=== PATIENT | female | born 1950 | race African-American/Black ===

== ENCOUNTER 2016-07-08 01:24 | Emergency (ER) | payer MEDICAID, MEDICARE, OTHER ==
[~2016-07-08] VITALS: Ht 152.4 cm; Wt 63.5 kg
[~2016-07-08 01:24] MED LIST: ACETAMINOPHEN-1 EAC1 ORAL; AMLODIPINE BESYL5 MG ORAL; CEPHALEXIN500 MG ORAL; FUROSEMIDE40 MG ORAL; KEFLEX500 MG ORAL; LEXAPRO10 MG ORAL; LISINOPRIL5 MG ORAL; PACERONE100 MG ORAL; PROPRANOLOL HCL10 MG ORAL; TACROLIMUS0.5 MG PO; primidone PO
[2016-07-08] MEDS ORDERED: CRESTOR10 M2 ORAL (01:47)
[2016-07-08] MEDS ORDERED: PROPRANOLOL HCL10 MG ORAL (01:47)
[2016-07-08] MEDS ORDERED: CALCITRIOL1 MCG/1 ML IV (01:47)
[2016-07-08] MEDS ORDERED: ESCITALOPRAM OX10 MG ORAL (01:47)
[2016-07-08] MEDS ORDERED: VITAMIN D250000 UNI1 ORAL (01:47)
[2016-07-08] MEDS ORDERED: ALLOPURINOL100 M1 ORAL (01:47)
[2016-07-08] MEDS ORDERED: ROCATROL0.25 MCG GT (01:47)
[2016-07-08] MEDS ORDERED: CHLORTHALIDONE25 MG ORAL (01:47)
[2016-07-08] MEDS ORDERED: TACROLIMUS0.5 GM MC (01:47)
[2016-07-08] MEDS ORDERED: FERROUS SULFAT325 MG ORAL (01:47)
--- NOTE | 2016-07-08 01:51 | Emergency Room Report ---
History of Present Illness General Chief Complaint: Edema Source: Patient Present Illness HPI Is a 66-year-old female with history hypertension and kidney and liver insufficiency. She presents with chief complaint of increasing swelling to the lower extremity the last few days. Initially in the right side. Now that is also with edema. She complaining of lower back pain. Denies dysuria frequency. Denies any chest pain. Does have shortness of breath with exertion. No other complaint. No trauma. No pain. Allergies: Coded Allergies: IODINE (Verified Allergy, Unknown, 10/24/08) Patient History Past Medical History: see triage record, old chart reviewed, HTN Past Surgical History: other Pertinent Family History: none Social History: Denies: smoking Last Menstrual Period: NO MORE PERIOD Now: No : 2 Immunizations: other Reviewed Nursing Documentation: PMH: Agreed, PSxH: Agreed Nursing Documentation-PMH Hx Cardiac Problems: Yes Hx Hypertension: Yes Hx Diabetes: Yes Review of Systems Eye: Denies: blurred vision, eye pain ENT: Denies: ear pain, nose congestion, throat swelling Respiratory: Reports: shortness of breath, Denies: cough Cardiovascular: Denies: chest pain, palpitations Gastrointestinal: Denies: abdominal pain, diarrhea, nausea, vomiting Musculoskeletal: Reports: joint swelling, Denies: back pain, joint pain Skin: Denies: rash Neurological: Denies: headache, numbness Endocrine: Denies: increased thirst, increased urine Hematologic/Lymphatic: Denies: easy bruising All Other Systems: negative except mentioned in HPI Physical Exam Vital Signs Date Time Temp Pulse Resp B/P Pulse Ox O2 Delivery O2 Flow Rate FiO2 07/08/16 01:30 98.2 66 18 142/88 96 Room Air vitals with hypertension Sp02 EP Interpretation: reviewed, normal General Appearance: well appearing, no apparent distress, alert Head: normocephalic, atraumatic Eyes: bilateral eye EOMI, bilateral eye PERRL ENT: hearing grossly normal, normal pharynx Neck: full range of motion, supple, no meningismus Respiratory: chest non-tender, lungs clear, normal breath sounds Cardiovascular #1: regular rate, rhythm, no murmur Gastrointestinal: normal bowel sounds, non tender, no mass, no organomegaly, no bruit, non-distended Musculoskeletal: back normal, gait/station normal, normal range of motion, swelling - Right leg with 2+ pitting edema. Left leg with trace edema Neurologic: alert, oriented x3 Psychiatric: mood/affect normal Skin: warm/dry Medical Decision Making Diagnostic Impression: Primary Impression: Pedal edema Additional Impressions: Chronic kidney disease Qualified Codes: N18.9 - Chronic kidney disease, unspecified Proteinuria ER Course Patient presents with increasing pedal edema. Her Lasix was stopped because of her kidney function was worsening. Her reaction in is elevated since last time she was here. No evidence of CHF in her lungs. Lungs are clear. She does have cardiomegaly. No evidence of DVT. I had mistaken another patient's urinalysis is this patient. I order Rocephin and patient received a very small amount. She probably receive less than 50 mL. That was stopped. Urinalysis was sent. Patient felt better. No evidence of ACS. No evidence of PE. Lab Results Impression labs showed elevated creatinine EKG Diagnostic Results Rate: normal Rhythm: NSR ST Segments: no acute changes Rhythm Strip Diag. Results EP Interpretation: yes Rate: 60 Rhythm: NSR, no PVC's, no ectopy Chest X-Ray Diagnostic Results EP Interpretation: Yes Findings: no consolidation, no effusion, no pneumothorax, no acute cardiopulmonary disease, other - cm Number of Views: 1 CT/MRI/US Diagnostic Results CT/MRI/US Diagnostic Results : Imaging Test Ordered: US RLE Impression Read by manager clinical research. Neg for DVt Last Vital Signs Date Time Temp Pulse Resp B/P Pulse Ox O2 Delivery O2 Flow Rate FiO2 07/08/16 01:30 98.2 66 18 142/88 96 Room Air Status: improved Disposition: HOME, SELF-CARE Condition: Stable Scripts Furosemide* (LASIX*) 20 Mg Tablet 20 MG ORAL DAILY, #7 TAB Prov: ISH ORNELAS M.D. 07/08/16 Patient Instructions: Peripheral Edema Additional Instructions: Followup with your DrTucker in 3-5 days. Bring your laboratory data with you. Return for increasing pain, fever, swelling or any concern. ISH ORNELAS M.D. Jul 08, 2016 01:51
[2016-07-08 02:51] VITALS: BP 130/78
[2016-07-08 02:56] LABS: BASOPHILS % (AUTO) 1.3 % (0.0-2.0); EOSINOPHILS % (AUTO) 3.4 % (0.0-3.0); LYMPHOCYTES % (AUTO) 37.4 % (20.0-45.0); MEAN CORPUSCULAR HEMOGLOBIN 28.4 PG (27.0-31.0); MEAN CORPUSCULAR HGB CONC 30.7 G/DL (32.0-36.0); MEAN CORPUSCULAR VOLUME 93 FL (80-99); MEAN PLATELET VOLUME 4.6 FL (6.5-10.1); MONOCYTES % (AUTO) 8.3 % (1.0-10.0); NEUTROPHILS % (AUTO) 49.6 % (45.0-75.0); PLATELET COUNT 227 K/UL (150-450); RED BLOOD COUNT 4.95 M/UL (4.20-5.40); RED CELL DISTRIBUTION WIDTH 14.4 % (11.6-14.8)
[2016-07-08 03:07] LABS: TROPONIN I < 0.30 ng/mL (<=0.30)
[2016-07-08 03:10] LABS: ALBUMIN/GLOBULIN RATIO 0.7 (1.0-2.7); CALCIUM 9.3 mg/dL (8.6-10.2); CREATININE 2.6 mg/dL (0.5-0.9); GLOMERULAR FILTRATION RATE 22.3 mL/min (>60); POTASSIUM 4.5 mEQ/L (3.4-4.9); TOTAL PROTEIN 7.4 g/dL (6.6-8.7)
[2016-07-08 03:21] LABS: CKMB 1.9 ng/mL (< 3.8)
[2016-07-08] MEDS ORDERED: cefTRIAXone 1 GM in NS 55 ML IVPB ONE (04:00)
[2016-07-08 04:18] LABS: APPEARANCE,URINE CLEAR; KETONES,URINE NEGATIVE (NEGATIVE); LEUKOCYTE ESTERASE ,URINE NEGATIVE (NEGATIVE); NITRITE,URINE NEGATIVE (NEGATIVE); PH,URINE 8 (4.5-8.0); PROTEIN,URINE 3+ (NEGATIVE); UROBILINOGEN,URINE NORMAL MG/DL (0.0-1.0)
[2016-07-08] MEDS ORDERED: FUROSEMIDE20 M1 ORAL (04:23)
[2016-07-08 04:38] LABS: WBC,URINE 0-2 /HPF (0 - 2)
[2016-07-08 04:39] LABS: BACTERIA,URINE FEW /HPF; SQUAMOUS EPITHELIAL CELL,UR MODERATE /LPF (NONE/OCC)
[2016-07-08 04:48] VITALS: BP 147/72
[2016-07-08 04:52] VITALS: BP 147/72
--- NOTE | 2016-07-08 09:30 | Diagnostic Imaging Report ---
Indications: Shortness of breath Technique: Portal AP chest Findings: Comparison: 11/17/2014 Suboptimal inspiration, suboptimal image quality due to exposure factors limit evaluation. Cardiac silhouette remains enlarged. Pulmonary vasculature remains within normal limits. Visualized portions of lungs and pleura remain clear. IMPRESSION: No evidence of acute cardiopulmonary disease, limited as described. Upright PA and lateral chest radiographs with better inspiratory effort and optimal technique recommended for more complete evaluation. Stable cardiomegaly
--- NOTE | 2016-07-08 14:32 | Cardiology Report ---
APPROVED REPORT EKG Measurement Heart [id number] Normal sinus rhythm Septal infarct, age undetermined Abnormal ECG
--- NOTE | 2016-07-11 21:48 | Diagnostic Imaging Report ---
APPROVED REPORT CPT Code: 23375 Present Symptoms Lower Extremity Pain: Right RIGHT LEG: Venous imaging reveals a patent deep venous system. There is no evidence of thrombus within the femoral, popliteal or tibial segments. The greater saphenous vein is also within normal limits. Doppler indicates normal spontaneous flow within these segments.
== END 2016-07-08 04:53 | disposition home or self-care (01) ==
LOC: EMR 01:53
DX: I12.9 Hypertensive chronic kidney disease with stage 1 through stage 4 chronic kidney disease, or unspecified chronic kidney disease (principal); E11.22 Type 2 diabetes mellitus with diabetic chronic kidney disease; N18.9 Chronic kidney disease, unspecified; R60.9 Edema, unspecified; R80.9 Proteinuria, unspecified
CPT/HCPCS: 36415; 71010; 80053; 81003; 82550; 82553; 83880; 84484; 85025; 93005; 93971; 96360; 96374; 99284; J0696; J1940

== ENCOUNTER 2016-07-13 22:24 | Emergency (ER) | payer OTHER ==
[~2016-07-13] VITALS: Ht 152.4 cm; Wt 63.5 kg
[~2016-07-13 22:24] MED LIST changes: +ALLOPURINOL100 M1 ORAL; +CALCITRIOL1 MCG/1 ML IV; +CHLORTHALIDONE25 MG ORAL; +CRESTOR10 M2 ORAL; +ESCITALOPRAM OX10 MG ORAL; +FERROUS SULFAT325 MG ORAL; +FUROSEMIDE20 M1 ORAL; +ROCATROL0.25 MCG GT; +TACROLIMUS0.5 GM MC; +VITAMIN D250000 UNI1 ORAL
[2016-07-13] MEDS ORDERED: traMADol 50mg tab ORAL ONE (23:00)
[2016-07-14] MEDS ORDERED: NORCO 5-325 TA1 EACH ORAL (00:27)
[2016-07-14 00:36] VITALS: BP 135/89
[2016-07-14 01:13] VITALS: BP 135/89
--- NOTE | 2016-07-14 02:49 | Emergency Room Report ---
History of Present Illness General Chief Complaint: Pain Source: Patient Present Illness HPI 66-year-old female presents ED complaining of right hip pain. Notes having pain on and off for several months now. Denies recent trauma. Pain is sharp. 7/10, nonradiating. Worse with walking. No other aggravating or relieving factors. Denies any other associated symptoms Allergies: Coded Allergies: IODINE (Verified Allergy, Unknown, 10/24/08) Patient History Past Medical History: DM, HTN Past Surgical History: none Pertinent Family History: none Social History: Denies: alcohol use, drug use, smoking Now: No Immunizations: UTD Reviewed Nursing Documentation: PMH: Agreed, PSxH: Agreed Nursing Documentation-PMH Hx Cardiac Problems: Yes - ARTHRITIS Hx Hypertension: Yes Hx Diabetes: Yes Review of Systems All Other Systems: negative except mentioned in HPI Physical Exam Vital Signs Date Time Temp Pulse Resp B/P Pulse Ox O2 Delivery O2 Flow Rate FiO2 07/13/16 22:40 98.4 90 16 145/92 95 Room Air Sp02 EP Interpretation: reviewed, normal General Appearance: no apparent distress, alert, GCS 15, non-toxic Head: normocephalic Eyes: bilateral eye PERRL, bilateral eye normal inspection ENT: normal ENT inspection Neck: normal inspection Respiratory: normal inspection Cardiovascular #1: normal inspection Gastrointestinal: normal inspection Rectal: deferred Genitourinary: no CVA tenderness Musculoskeletal: back normal, gait/station normal, normal range of motion, tender - R hip Neurologic: alert, oriented x3, responsive, motor strength/tone normal, sensory intact, speech normal Psychiatric: normal inspection Skin: normal inspection Lymphatic: normal inspection Medical Decision Making Diagnostic Impression: Primary Impression: Hip pain Qualified Codes: M25.551 - Pain in right hip ER Course Hospital Course 66-year-old F presents to ED complaining of R hip pain Differential diagnoses include: Fracture, dislocation, sprain, contusion Clinical course Patient placed on stretcher. After initial history and physical, I ordered pain medications and CT Pelvis CT shows no acute fracture, some artifact. She denies any recent trauma. Notes having a few falls several years ago. On reassessment pain is improved. Patient will be discharged on pain medications and recommend followup with orthopedics Diagnosis - hip pain Stable and discharged to home with prescription for [place]. apply ice, keep elevated. weight bear as tolerated. Followup with PMD. Return to ED if symptoms recur or worsen CT/MRI/US Diagnostic Results CT/MRI/US Diagnostic Results : Imaging Test Ordered: CT Pelvis Impression artifact in R lesser trochanter. no acute fracture identified Last Vital Signs Date Time Temp Pulse Resp B/P Pulse Ox O2 Delivery O2 Flow Rate FiO2 07/14/16 01:13 98.5 82 16 135/89 95 Room Air Status: improved Disposition: HOME, SELF-CARE Condition: Stable Scripts Hydrocodone Bit/Acetaminophen 5-325* (NORCO 5-325*) 1 Each Tablet 1 TAB ORAL Q6H Y for For Pain, #10 TAB 0 Refills Prov: MAIDA CALDWELL M.D. 07/14/16 Patient Instructions: Hip Pain MAIDA CALDWELL M.D. Jul 14, 2016 02:49
--- NOTE | 2016-07-14 10:08 | Diagnostic Imaging Report ---
Indication: Right hip pain Technique: Continuous helical transaxial imaging of the right hip was obtained from the iliac crest to the pubic symphysis. Coronal 2-D reformats were also obtained. Study obtained in a Siemens sensation [address] Intravenous non-ionic contrast was administered. Total Dose length Product (DLP): [address] Dose Index Volume (CTDIvol): 13 mGy Comparison: None Findings: The study is technically suboptimal. The [id number] does not adequately cover the right trochanteric. No obvious proximal femur fracture identified. There is no malalignment identified. There is some motion artifact. Sacroiliac joint vacuum phenomena noted. Limited visualization of the left hip is unremarkable. Irregularity and osteophyte formation involving the lower lumbar facets noted. There are surgical clips in the visualized part of the abdomen and pelvis. Impression: No acute fracture identified. Limitations as discussed above [facility] has communicated the preliminary results to the Emergency Department. Their findings are largely concordant with this report.
== END 2016-07-14 01:13 | disposition home or self-care (01) ==
LOC: EMR 23:12
DX: M25.551 Pain in right hip (principal); E11.9 Type 2 diabetes mellitus without complications; I10 Essential (primary) hypertension; M19.90 Unspecified osteoarthritis, unspecified site
CPT/HCPCS: 72192; 99284

== ENCOUNTER 2019-04-26 22:20 | Emergency (ER) | payer OTHER ==
[~2019-04-26] VITALS: Ht 149.9 cm; Wt 63.5 kg
[~2019-04-26 22:20] MED LIST changes: +NORCO 5-325 TA1 EACH ORAL
[2019-04-26 22:30] VITALS: BP 126/82
--- NOTE | 2019-04-27 00:26 | Diagnostic Imaging Report ---
Indication: Cervical trauma/pain. Technique: Continuous helical imaging of the cervical spine was obtained transaxially from the skull base to the upper thoracic spine. 2-D coronal and sagittal reformatted images were obtained. Automatic Exposure Control was utilized. Total Dose length Product (DLP): 262.[address] Dose Index Volume (CTDIvol): 10.9 mGy Comparison: None Findings: There is no acute fracture or malalignment identified. There is no soft tissue swelling identified. Moderate uncovertebral arthritis is demonstrated at multiple levels. Some of the intervertebral discs show narrowing and osteophytes. Mild arterial calcifications are present. Impression: No acute injury Moderate spondylosis [facility] has communicated the preliminary results to the Emergency Department. Their findings are largely concordant with this report. The CT scanner at [facility] is accredited by the [employer] and the scans are performed using dose optimization techniques as appropriate to a performed exam including Automatic Exposure control.
--- NOTE | 2019-04-27 00:54 | Diagnostic Imaging Report ---
Indication: Chest pain Technique: Continuous helical transaxial imaging of the chest was obtained from the thoracic inlet to the upper abdomen. No intravenous contrast was administered. Coronal 2-D reformats were also obtained. Total Dose length Product (DLP): 713.[address] Dose Index Volume (CTDIvol): 18.5 mGy Comparison: none Findings: The lungs are clear. There is generalized cardiomegaly. There is a small nodule at the right lung base posteriorly noncalcified. Aorta is mildly calcified. No adenopathy or abnormal fluid collection seen within the chest. There is a small hiatal hernia. Visualized part of the upper abdomen shows pneumobilia. There is also a stent present within the CBD only partially visualized on this study. There is the suggestion of varices in the upper abdomen. There is partial visualization of upper portions of both kidneys, both of which appear moderately atrophic. IMPRESSION: No acute findings in the chest. CBD stents. Pneumobilia. Atrophied kidneys. Suggestion of portosystemic varices. This should be confirmed on additional imaging of this has not already been confirmed. [facility] has communicated the preliminary results to the Emergency Department. Their findings are largely concordant with this report. The CT scanner at [facility] is accredited by the [employer] and the scans are performed using dose optimization techniques as appropriate to a performed exam including Automatic Exposure control.
[2019-04-27] MEDS ORDERED: NORCO 5-325 TA1 EACH ORAL (01:00)
[2019-04-27 01:10] VITALS: BP 126/82
--- NOTE | 2019-04-27 01:15 | Emergency Room Report ---
History of Present Illness General Chief Complaint: Pain Source: Medical Record Present Illness HPI Patient is a 69-year-old female presents after a fall from standing. Patient reports slipping and losing her balance. She denies any loss of consciousness. She reports injuring her right shoulder as well as her right upper abdomen. She denies any locations of pain.Patient denies any vomiting or diarrhea. She denies any fever. She had prior history of liver transplant as well as renal transplant. She is not currently on dialysis. Allergies: Coded Allergies: IODINE (Verified Allergy, Unknown, 10/24/08) Patient History Past Medical History: see triage record Reviewed Nursing Documentation: PMH: Agreed; PSxH: Agreed Nursing Documentation-PMH Past Medical History: No History, Except For Hx Cardiac Problems: Yes - ARTHRITIS Hx Hypertension: Yes Hx Diabetes: Yes Review of Systems All Other Systems: negative except mentioned in HPI Physical Exam Vital Signs Date Time Temp Pulse Resp B/P (MAP) Pulse Ox O2 Delivery O2 Flow Rate FiO2 04/26/19 22:24 98.8 56 18 126/82 (97) 96 Room Air Sp02 EP Interpretation: reviewed, normal General Appearance: normal inspection, well appearing, no apparent distress, alert, GCS 15, non-toxic Head: atraumatic ENT: normal ENT inspection, hearing grossly normal, normal voice Neck: normal inspection, full range of motion, supple, no bony tend Respiratory: normal inspection, lungs clear, normal breath sounds, no respiratory distress, no retraction, no wheezing Cardiovascular #1: regular rate, rhythm, no edema Gastrointestinal: normal inspection, normal bowel sounds, non tender, soft, no guarding, no hernia Genitourinary: no CVA tenderness Musculoskeletal: normal inspection, back normal, normal range of motion Neurologic: alert, motor strength/tone normal, responsive, speech normal, normal inspection, other - motor tics Psychiatric: normal inspection, judgement/insight normal, mood/affect normal Medical Decision Making Diagnostic Impression: Primary Impression: Contusion, chest wall Additional Impression: Shoulder pain ER Course Patient presented after a fall. Differential diagnosis include was not limited to fracture, contusion, dislocation among others. Patient did not show any signs of head trauma and denies hitting her head. CT imaging of the cervical spine was ordered to the patient's location of pain. CT read by radiology showed degenerative changes without evident fracture. X-ray imaging of the right upper extremity showed degenerative changes without evident fracture 3 views interpreted by me. Patient placed in a sling. She was given lidocaine patch for pain. Patient was given prescription for pain medications. CT imaging of the chest showed multiple chronic findings without evidence of effusion or fracture. Patient was discharged home. She was advised to follow- up with her primary care physician for recheck. She is to return if worse. Last Vital Signs Date Time Temp Pulse Resp B/P (MAP) Pulse Ox O2 Delivery O2 Flow Rate FiO2 04/26/19 22:30 98.8 89 18 126/82 96 Room Air Status: improved Disposition: HOME, SELF-CARE Condition: Stable Scripts Hydrocodone Bit/Acetaminophen 5-325* (NORCO 5-325*) 1 Each Tablet 1 TAB ORAL Q6H PRN for For Pain, #10 TAB 0 Refills Prov: Timo Quinones MD 04/27/19 Patient Instructions: Chest Wall Pain Additional Instructions: Follow up with your doctor in 1-2 days. Timo Quinones MD Apr 27, 2019 01:15
--- NOTE | 2019-04-27 11:02 | Diagnostic Imaging Report ---
Indication: Right shoulder pain COMPARISON: None Findings: 3 views of the right shoulder were obtained. Bones are osteopenic. No malalignment or acute fracture is identified. Osteoarthritis are demonstrated with the periarticular spur formation. IMPRESSION: No acute injury
== END 2019-04-27 01:10 | disposition home or self-care (01) ==
LOC: EMR 22:51
DX: M25.511 Pain in right shoulder (principal); S20.219A Contusion of unspecified front wall of thorax, initial encounter; W01.0XXA Fall on same level from slipping, tripping and stumbling without subsequent striking against object, initial encounter; Y92.9 Unspecified place or not applicable; I10 Essential (primary) hypertension; E11.9 Type 2 diabetes mellitus without complications; M19.90 Unspecified osteoarthritis, unspecified site; Z91.041 Radiographic dye allergy status
CPT/HCPCS: 71250; 72125; 99284